=== PATIENT | female | born 1955 | race Caucasian/White ===

== ENCOUNTER → 2017-03-07 | Outpatient (CLI) | payer MEDICARE, OTHER | END | disposition home or self-care (01) | LOC: RADPV 13:47 | PROVIDERS: ATTEND Family Medicine | DX: I70.0 Atherosclerosis of aorta (principal); Z98.890 Other specified postprocedural states | CPT/HCPCS: 71020 ==

== ENCOUNTER → 2017-11-26 | Outpatient (CLI) | payer MEDICARE, OTHER ==
[2017-11-26 16:14] LABS: ALANINE AMINOTRANSFERASE 19 U/L (12-78); ALBUMIN 3.6 g/dL (3.4-5.0); ALKALINE PHOSPHATASE 114 U/L (46-116); ANION GAP 3 mmol/L (8-16); ASPARTATE AMINOTRANSFERASE 19 U/L (15-37); BILIRUBIN,TOTAL 0.3 mg/dL (0.1-1.0); CALCIUM, TOTAL 8.8 mg/dL (8.8-10.5); CARBON DIOXIDE 32 mmol/L (22-29); CHLORIDE 106 mmol/L (98-107); CREATININE 0.76 mg/dL (0.60-1.30); GLOMERULAR FILTR. RATE CALC > 60 mL/min (>60); GLUCOSE,RANDOM 89 mg/dL (70-110); SODIUM SERUM 141 mmol/L (136-145); TOTAL PROTEIN, SERUM 7.7 g/dL (6.4-8.2); UREA NITROGEN, BLOOD 14 mg/dL (7-18); URIC ACID 5.1 mg/dL (2.6-7.2)
== END | disposition home or self-care (01) ==
LOC: MSR 15:33
PROVIDERS: ATTEND Family Medicine
DX: M25.461 Effusion, right knee (principal)
CPT/HCPCS: 84550

== ENCOUNTER 2020-02-25 11:53 | Emergency (ER) | payer MEDICARE, OTHER ==
[~2020-02-25] VITALS: Ht 154.9 cm; Wt 81.8 kg
[2020-02-25] MEDS ORDERED: SERT50TA12 PO (11:58)
[2020-02-25] MEDS ORDERED: HYPERTENSION PO (11:58)
[2020-02-25] MEDS ORDERED: LEVO25TA9 PO (11:58)
[2020-02-25] MEDS ORDERED: PredniSONE 20 MG TABLET PO ONE (12:45)
[2020-02-25] MEDS ORDERED: CLINDAMYCIN HCL 150 MG CAPSULE PO ONE (12:45)
[2020-02-25] MEDS ORDERED: LORATADINE 10 MG TABLET PO ONE (13:00)
[2020-02-25 13:27] LABS: BASOPHILS % (AUTO) 0.3 % (0.0-2.0); EOSINOPHILS % (AUTO) 6.4 % (1.0-6.0); HEMATOCRIT 40.5 % (36-46); HEMOGLOBIN 13.8 g/dL (12.0-16.0); LYMPHOCYTES # (AUTO) 1.7 K/uL (1.0-4.8); MEAN CORPUSCULAR HEMOGLOBIN 31.9 pg (26.0-34.0); MEAN CORPUSCULAR HGB CONC 34.1 G/dL (31.0-37.0); MEAN CORPUSCULAR VOLUME 94 fL (80-100); MONOCYTES # (AUTO) 0.4 K/uL (0.1-1.0); MONOCYTES % (AUTO) 5.6 % (2.0-9.0); NEUTROPHILS # (AUTO) 4.4 K/uL (1.8-7.7); NEUTROPHILS % (AUTO) 63.7 % (40.0-70.0); PLATELET COUNT (AUTO) 273 K/uL (150-450); RED BLOOD CELL COUNT(AUTO) 4.33 MIL/uL (4.00-5.20); RED CELL DISTRIBUTION WIDTH 13.2 % (11.5-14.5)
[2020-02-25 13:29] LABS: ANION GAP 7 mmol/L (8-16); CALCIUM, TOTAL 9.4 mg/dL (8.8-10.5); CARBON DIOXIDE 29 mmol/L (22-29); CHLORIDE 105 mmol/L (98-107); CREATININE 0.93 mg/dL (0.60-1.30); GLOMERULAR FILTR. RATE CALC > 60 mL/min (>60); GLUCOSE,RANDOM 148 mg/dL (70-110); POTASSIUM 3.5 mmol/L (3.5-5.1); SODIUM SERUM 141 mmol/L (136-145); UREA NITROGEN, BLOOD 13 mg/dL (7-18)
[2020-02-25 13:36] LABS: ALANINE AMINOTRANSFERASE 19 U/L (12-78); ALBUMIN 3.8 g/dL (3.4-5.0); ALKALINE PHOSPHATASE 98 U/L (46-116); ASPARTATE AMINOTRANSFERASE 18 U/L (15-37); BILIRUBIN,TOTAL 0.4 mg/dL (0.1-1.0); TOTAL PROTEIN, SERUM 7.8 g/dL (6.4-8.2)
[2020-02-25 14:00] VITALS: BP 144/62
== END 2020-02-25 14:09 | disposition home or self-care (01) ==
LOC: EMS 12:01
DX: F32.9 Major depressive disorder, single episode, unspecified (principal); T36.8X5A Adverse effect of other systemic antibiotics, initial encounter; T36.4X5A Adverse effect of tetracyclines, initial encounter; G89.29 Other chronic pain; I10 Essential (primary) hypertension; Y92.89 Other specified places as the place of occurrence of the external cause
CPT/HCPCS: 36415; 80053; 85025; 99284; G0480; J7512

== ENCOUNTER 2020-07-18 18:17 | Emergency (ER) | payer MEDICARE, OTHER ==
[~2020-07-18] VITALS: Ht 152.4 cm; Wt 86.4 kg
[~2020-07-18 18:17] MED LIST: HYPERTENSION PO; LEVO25TA9 PO; SERT50TA12 PO
[2020-07-18] MEDS ORDERED: HYDR-4396 PO (18:37)
[2020-07-18] MEDS ORDERED: MELO-107 PO (18:37)
[2020-07-18] MEDS ORDERED: DULO20CA27 PO (18:37)
[2020-07-18] MEDS ORDERED: GABA-1181 PO (18:37)
[2020-07-18 19:32] VITALS: BP 116/69
[2020-07-18] MEDS ORDERED: ACETAMINOPHEN 325 MG TABLET PO ONE (19:45)
== END 2020-07-18 21:19 | disposition home or self-care (01) ==
LOC: EMS 18:19
DX: S83.91XA Sprain of unspecified site of right knee, initial encounter (principal); M19.90 Unspecified osteoarthritis, unspecified site; I10 Essential (primary) hypertension; E03.9 Hypothyroidism, unspecified; Z79.899 Other long term (current) drug therapy; X50.1XXA Overexertion from prolonged static or awkward postures, initial encounter; Y93.89 Activity, other specified; Y92.89 Other specified places as the place of occurrence of the external cause; Y99.8 Other external cause status
CPT/HCPCS: 99284; 73562-TC; 73630-TC; Z7502